=== PATIENT | female | born 1990 | race African-American/Black ===

== ENCOUNTER 2018-12-17 02:05 | Inpatient (IN) | payer OTHER ==
[2018-12-17] VITALS (14 sets, daily range): BP systolic 109–159; BP diastolic 57–80
[~2018-12-17] VITALS: Ht 165.1 cm; Wt 85.4 kg
[2018-12-17] MEDS ORDERED: BUSP10TA PO (02:21)
[2018-12-17] MEDS ORDERED: MULTTAB20 PO (02:22)
[2018-12-17] MEDS ORDERED: LR 1,000 ML IV SCH (02:55)
[2018-12-17] MEDS ORDERED: LACTATED RINGER'S 1000 ML IV STA (02:55)
[2018-12-17 03:10] LABS: HEMATOCRIT 39.7 % (36.0-47.0); HEMOGLOBIN 13.4 g/dl (12.0-15.5); MEAN CORPUSCULAR HEMOGLOBIN 29.9 pg (27.0-33.0); MEAN CORPUSCULAR HGB CONC 33.8 g/dl (32.0-36.5); MEAN CORPUSCULAR VOLUME 88.6 fl (80.0-96.0); PLATELET COUNT, AUTOMATED 147 10^3/uL (150-450); RED BLOOD COUNT 4.48 10^6/uL (4.00-5.40); WHITE BLOOD COUNT 11.8 10^3/uL (4.0-10.0)
--- NOTE | 2018-12-17 03:23 | HPEPDOC ---
Obstetrical History & Physical General Date of Admission Dec 17, 2018 at 02:40 History of Present Illness Keya is a 28yo with SIUP at 40w4d by 7wk u/s who presents with painf ul regular ctx that started just over an hour ago. No LOF, no overt vaginal bleeding. Good movement. No f/c/n/v/CP/SOB. Chief Complaint: Contractions, term Information Provided By: Patient Care Care: Good Care Dating Final EDC: Dec 13, 2018 Final EDC by: LMP, 1st trimester (US) Antepartum Course Diagnos(e)s Overweight (starting BMI 27), A1GDM, depression with weekly counseling and taking buspar, VNI Height (inches): 65 Pre- weight (lbs.): 163 Admission Weight (lbs.): 190 Change in Weight (lbs.): 27 Past Medical History Past Obstetrical History : Past Obstetrical History: Multigravida (December 2016 uncomplicated at 40wk, male, [id number]) [employer] History: History of STD (hx of chlamydia) Past Medical History Medical History depression (weekly counseling, buspar) Surgical History: Denies/None Family History Significant Family History: Other (FOB's mother has sickle cell) Social History Marital Status: Family situation: Spouse/partner home Psychosocial History: Depression * Smoker: non-smoker Alcohol: Denies Drugs: denies Imunizations Tdap status: current Influenza Status: current Allergies Coded Allergies: No Known Allergies (Unverified , 12/17/18) Medications Scheduled Buspirone HCl (Buspirone HCl) 10 Mg Tablet, 1 TAB PO TID No122/Iron/Folic Acid ( Multi Tablet) 1 Each Tablet, 1 TAB PO DAILY Physical Examination Physical Examination GENERAL: Alert and oriented times three. ABDOMEN: Gravid and non-tender to touch. FETUS: Is vertex (VTX) by sterile vaginal examination (SVE) EXTREMITIES: No edema Laboratory Data 24H LABS Laboratory Tests 2 12/17/18 02:42: Serology Scanned Report Hepatitis B Testing Pertinent Laboratoy Data Blood Type: O+ RBC Antibody Screen: Negative HIV: Negative Hepatitis B: Negative Hepatitis C: Unknown Rapid Plasma Reagin: Nonreactive Rubella: Immune Varicella: Nonreactive Chlamydia/Gonorrhea: Negative Group B Streptococcus: Negative Quad Screen Test: Negative Glucose Tolerance Test: 147 (105/184/186/142) Anatomy Ultrasound Ultrasound Date: Jul 26, 2018 Placenta Location: Anterior Normal Anatomy: Yes Placenta Previa: No Steroid Therapy Steroid Therapy: No Vaginal Examination Dilation: 8 cm Effacement: 90% Station: -1, 0 Cervical Consistency: Soft Cervical Position: Anterior Presentation: Cephalic presentation Assessment Heart Rate (FHR): 130 Variability: Moderate Accelerations: Positive Decelerations: Variable Tocometer Contractions: Yes Frequency: every 2-5 min. Duration: greater than 60 seconds Strength: palpated as strong Assessment/Plan Assessment Keya is a 28yo with SIUP at 40w4d by 7wk u/s in active labor with SCE 8/90/-1, ctx q2-4min. Vitals wnl, afebrile. Cephalic by SCE. GBS negative. Cat II FHRT, occasional variable decels, nothing prolonged/recurrent. PMhx/ course significant for: Overweight (starting BMI 27), A1GDM, depression with weekly counseling and taking busparDORA Plan Admit and orient. Gunite Mixer and consent. Diet: clear liquids Group B Streptococcus (GBS) negative Labs and intravenous (IV) per unit protocol. Lactated Ringers (LR): Bolus 1000 mL, then at 125 mL/hr. Anticipate normal spontaneous delivery () Candidate for epidural, but she may progress too rapidly to receive it. Too close to delivery for IV pain meds. MD Carson Traore Katrina D MD Dec 17, 2018 03:23
[2018-12-17] MEDS ORDERED: FENTANYL 2MCG/ML ROPIVACAINE 0.2% IN 0.9% NACL 100ML IVBAG As Ordered ONE (03:30)
[2018-12-17] MEDS ORDERED: ONDANSETRON 4MG/2ML VIAL (J2405) IV PRN (03:35)
[2018-12-17] MEDS ORDERED: EPIDURAL/PCA KEYS XX PRN (03:35)
[2018-12-17] MEDS ORDERED: FENTANYL/ROPIVACAINE/NACL BAG 100 ML EPIDURAL SCH (03:35)
[2018-12-17] MEDS ORDERED: diphenhydrAMINE INJ 50MG/ML VIAL (J1200) IV PRN (03:35)
[2018-12-17] MEDS ORDERED: NALOXONE INJ 0.4 MG/1 ML VIAL (J2310) IV PRN (03:35)
[2018-12-17] MEDS ORDERED: EPIDURAL COMMENT XX SCH (03:35)
[2018-12-17] MEDS ORDERED: ePHEDrine SULFATE 25 MG/5 ML(5MG/ML) SYRINGE IV PRN (03:35)
[2018-12-17] MEDS ORDERED: REFRIGERATOR IV KEYS XX PRN (03:35)
[2018-12-17] MEDS ORDERED: OXYTOCIN 30 UNITS IN 0.9% NaCl 500ML IV BAG (J2590) As Ordered ONE (04:19)
--- NOTE | 2018-12-17 04:38 | DNPDOC ---
[facility] Delivery Note Delivery Note DATE OF DELIVERY: 17 December 2018 PREDELIVERY DIAGNOSIS: 40w4d gestation and labor. POST DELIVERY DIAGNOSIS: Delivered. PROCEDURE: Spontaneous vaginal delivery OYSTER GROWER: Dr. Kate Byrd MD ANESTHESIA: epidural ESTIMATED BLOOD LOSS: 200 mL. FINDINGS: 7 pound 15 ounce (3610g) male , Score 9/9 DELIVERY SUMMARY: Keya is a 28yo [id number] s/p uncomplicated at 40w4d after presenting in active labor, delivering at 04:12 on 17 December 2018. She presented at 5cm, progressed quickly and received an epidural at 9cm, then after AROM (clear), she further quickly progressed to C/C/0 at which point she began pushing. head delivered OA, restituted XAVIER. Left anterior shoulder delivered easily followed by posterior shoulder and corpus. was vigorous with spontaneous cry, placed on maternal abdomen. Nose and mouth were suctioned with bulb suction, apgars 9/9. Cord clamped x2 after 2 minutes and cut by FOB. Cord blood obtained for MBT O positive. Uterine massage performed, traction on the umbilical cord, placenta delivered spontaneously and intact with 3 vessel centrally inserted cord. IV pitocin was given per protocol, bimanual massage was performed and uterus then firm at u-2cm. Inspection of perineum and vagina revealed superficial left labial laceration repaired with 2 single sutures using 3-0 vicryl with complete hemostasis and good cosmesis (there is a well healed prior split of the left labia from her last delivery- I offered to revise and repair this also, but she declined since the small split does not bother her). All counts correct x2. Total hemostasis assured. Mom and infant were doing well when I left the room. MD Carson Traore Katrina D MD Dec 17, 2018 04:38
[2018-12-17] MEDS ORDERED: OXYTOCIN DRIP 30 UNITS in APPROPRIATE DILUENT 1 EA IV SCH (04:39)
[2018-12-17] MEDS ORDERED: ACETAMINOPHEN 500 MG TAB PO PRN (04:45)
[2018-12-17] MEDS ORDERED: DOCUSATE SODIUM 100 MG CAP PO PRN (04:45)
[2018-12-17] MEDS ORDERED: IBUPROFEN 800 MG TAB PO PRN (04:45)
[2018-12-17] MEDS ORDERED: DIBUCAINE 1% OINTMENT 30GM TOP PRN (04:45)
[2018-12-17] MEDS ORDERED: RHOGAM 300 MCG (1500 IU) INJ (J2790) IM SCH (04:45)
[2018-12-17] MEDS ORDERED: MEASLES,MUMPS,RUBELLA VACCINE INJ (MMR-II) (90707) SC SCH (04:45)
[2018-12-17] MEDS: PRENATAL VITAMINS CHEWABLE TABLET PO SCH (07:57)
[2018-12-17] MEDS ORDERED: ACETAMINOPH W/CODEINE #3 TAB UD PO PRN ×2 (12:00)
[2018-12-18 06:04] VITALS: BP 108/60
[2018-12-18] MEDS: PRENATAL VITAMINS CHEWABLE TABLET PO SCH (09:03)
[2018-12-18] MEDS ORDERED: IBUP80TA PO (09:39)
--- NOTE | 2018-12-18 09:49 | IPNPDOC ---
Text Note Date of Service The patient was seen on 12/18/18. NOTE PPD1 States feeling well, pain controlled with prescribed meds. Baby bonding and feeding well. No heavy VB. Lochia slowing. Ambulatory. Tolerating PO without issues. Voiding spont. No CP/LP/SOB. VSSAF NAD A&O LE no C/C/E Ut at U-2, firm a/p: Doing well. Cont routine care. D/C today. Sessions VS,Keisha, I+O VSKeisha I+O Vital Signs Date Time Temp Pulse Resp B/P (MAP) Pulse Ox O2 Delivery O2 Flow Rate FiO2 12/18/18 06:04 97.5 74 18 108/60 (76) I&O- Last 24 Hours up to 6 AM 12/18/18 06:00 Output Total 300 ml Balance -300 ml SESSIONS,ROSE Mcclure MD Dec 18, 2018 09:49
--- NOTE | 2018-12-18 09:52 | DS.PDOC ---
Discharge Summary General Date of Admission Dec 17, 2018 at 02:40 Date of Discharge [id number] Discharge Summary ADMITTING DIAGNOSES: Active labor DISCHARGE DIAGNOSES: Same, HOSPITAL COURSE: Admitted and delivery uncomplicated, . course uncomplicated. DISCHARGE MEDICATIONS: Motrin, Lanolin DISCHARGE INSTRUCTIONS: Nothing in the vagina for 6 weeks. F/U in OBGYN clinic in 6-8 weeks. Sessions Vital Signs/I&Os Vital Signs Date Time Temp Pulse Resp B/P (MAP) Pulse Ox O2 Delivery O2 Flow Rate FiO2 12/18/18 06:04 97.5 74 18 108/60 (76) I&O- Last 24 Hours up to 6 AM 12/18/18 05:59 Output Total 300 ml Balance -300 ml Discharge Medications Scheduled No122/Iron/Folic Acid ( Multi Tablet) 1 Each Tablet, 1 TAB PO DAILY, (Reported) Scheduled PRN Ibuprofen (Ibuprofen) 800 Mg Tablet, 800 MG PO Q8HP PRN for MODERATE PAIN (PS 5- 7) Allergies Coded Allergies: No Known Allergies (Unverified , 12/17/18) SESSIONS,ROSE Mcclure MD Dec 18, 2018 09:52
== END 2018-12-18 13:15 | disposition home or self-care (01) | DRG 807 ==
LOC: M LDO 02:05 → M LDI 02:40 → M OBS 06:31
PROVIDERS: ADMIT Obstetrics & Gynecology; ATTEND Obstetrics & Gynecology
PROC: 10E0XZZ Delivery of Products of Conception, External Approach (ICD-10-PCS; principal; 2018-12-17)
PROC: 0HQ9XZZ Repair Perineum Skin, External Approach (ICD-10-PCS; 2018-12-17)
PROC: 10907ZC Drainage of Amniotic Fluid, Therapeutic from Products of Conception, Via Natural or Artificial Opening (ICD-10-PCS; 2018-12-17)
DX: O48.0 Post-term pregnancy (principal); Z37.0 Single live birth; Z3A.40 40 weeks gestation of pregnancy; O24.420 Gestational diabetes mellitus in childbirth, diet controlled; O99.344 Other mental disorders complicating childbirth; F32.9 Major depressive disorder, single episode, unspecified; O99.214 Obesity complicating childbirth; E66.3 Overweight; O70.0 First degree perineal laceration during delivery